=== PATIENT | male | born 1960 | race African-American/Black ===

== ENCOUNTER 2020-10-07 14:59 | Inpatient (IN) | payer OTHER ==
[2020-10-07 18:00] VITALS: BMI 31.2
[2020-10-07] MEDS ORDERED: ACETAMINOPHEN 325 MG TABLET (FP) PO PRN ×2 (19:32)
[2020-10-07] MEDS ORDERED: NICOTINE POLACRILEX 2 MG GUM BUC PRN (19:32)
[2020-10-07] MEDS ORDERED: MAGNESIUM HYDROX 2400MG/30ML ORAL SUSPENSION 30 ML CUP PO PRN (19:32)
[2020-10-07] MEDS ORDERED: MENTHOL/PHENOL 1 EACH UD MM PRN (19:32)
[2020-10-07] MEDS ORDERED: MAG HYDROX/AL HYDROX/SIMETH 30 ML UNIT-DOSE CUP PO PRN (19:32)
[2020-10-07] MEDS ORDERED: BISMUTH SUBSALICYLATE 524 MG/30 ML UD PO PRN (19:32)
[2020-10-07] MEDS ORDERED: MAGNESIUM CITRATE 300 ML BOTTLE PO PRN (19:32)
[2020-10-07] MEDS ORDERED: METHOCARBAMOL 500 MG TABLET PO PRN (19:32)
[2020-10-07] MEDS ORDERED: IBUPROFEN 400 MG TABLET (FP) PO PRN (19:32)
[2020-10-07] MEDS ORDERED: ONDANSETRON *ODT* 4 MG TABLET SL PRN (19:32)
[2020-10-07] MEDS: THIAMINE HCL 100 MG TABLET (FP) PO SCH (22:46)
[2020-10-07] MEDS: MELATONIN 5 MG TABLETS PO SCH (22:46)
[2020-10-07] MEDS: hydrOXYzine PAMOATE 25 MG CAPSULE (FP) PO SCH (22:46)
[2020-10-08] MEDS: hydrOXYzine PAMOATE 25 MG CAPSULE (FP) PO SCH ×5 (05:32→22:38)
[2020-10-08 10:02] LABS: HEMATOCRIT 35.4 % (35.4-49); HEMOGLOBIN 11.7 GM/dL (11.7-16.9); MCH 30.4 pg (25.7-33.7); MEAN CELL VOLUME 91.9 fl (80-96); MEAN PLT VOLUME 7.8 fl (7.5-11.1); PLATELET COUNT 254 K/MM3 (134-434); RBC 3.85 M/mm3 (4.00-5.60); RDW 14.3 % (11.9-15.9); WHITE BLOOD COUNT 5.4 K/mm3 (4.0-10.0)
[2020-10-08] MEDS: diazePAM 5 MG TABLET PO SCH ×2 (10:17→22:37)
[2020-10-08] MEDS: PRENATAL VITAMINS W/ FOLIC ACID TABLET (FP) PO SCH (10:19)
[2020-10-08 10:24] LABS: ALBUMIN 2.9 g/dl (3.4-5.0); BLOOD UREA NITROGEN 16.6 mg/dL (7-18)
[2020-10-08 10:27] LABS: CREATININE 1.2 mg/dL (0.55-1.3)
[2020-10-08 10:29] LABS: BILIRUBIN,TOTAL 0.4 mg/dL (0.2-1); TOT PROT 5.8 g/dl (6.4-8.2)
[2020-10-08 10:52] LABS: CALCIUM 7.8 mg/dL (8.5-10.1)
[2020-10-08] MEDS: METOPROLOL TARTRATE 50 MG TABLET (FP) PO SCH ×2 (15:31→22:38)
[2020-10-08] MEDS: metFORMIN HCL 500 MG TABLET (FP) PO SCH (18:19)
[2020-10-08] MEDS: MELATONIN 5 MG TABLETS PO SCH (22:38)
[2020-10-08] MEDS: THIAMINE HCL 100 MG TABLET (FP) PO SCH (22:38)
[2020-10-09] MEDS ORDERED: diazePAM 5 MG TABLET PO ONE (05:00)
[2020-10-09] MEDS: hydrOXYzine PAMOATE 25 MG CAPSULE (FP) PO SCH ×3 (05:25→14:41)
[2020-10-09] MEDS: metFORMIN HCL 500 MG TABLET (FP) PO SCH (07:17)
[2020-10-09 09:56] VITALS: BP 145/88; PULSE 72; TEMP 97.8
[2020-10-09] MEDS: METOPROLOL TARTRATE 50 MG TABLET (FP) PO SCH (10:23)
[2020-10-09] MEDS: PRENATAL VITAMINS W/ FOLIC ACID TABLET (FP) PO SCH (10:23)
== END 2020-10-09 15:25 | disposition other institution (70) | DRG 774 ==
LOC: YASAS 14:59 → UNDOADMIN 19:25 → Y6N 19:25
PROVIDERS: ADMIT Allergy & Immunology; ATTEND Allergy & Immunology
PROC: HZ2ZZZZ Detoxification Services for Substance Abuse Treatment (ICD-10-PCS; principal; 2020-10-07)
DX: F10.230 Alcohol dependence with withdrawal, uncomplicated (principal); F14.20 Cocaine dependence, uncomplicated; F13.20 Sedative, hypnotic or anxiolytic dependence, uncomplicated; F17.210 Nicotine dependence, cigarettes, uncomplicated; F19.24 Other psychoactive substance dependence with psychoactive substance-induced mood disorder; I10 Essential (primary) hypertension; E11.9 Type 2 diabetes mellitus without complications; Z79.84 Long term (current) use of oral hypoglycemic drugs; R56.1 Post traumatic seizures; Z59.0 Homelessness
CPT/HCPCS: 36415; 71046-TC-FY; 80053; 82962; 83036; 85027; 86780; 93005; 93010; C9803; U0003; U0005

== ENCOUNTER 2020-10-09 15:33 | Inpatient (IN) | payer OTHER ==
[2020-10-09] MEDS ORDERED: MAG HYDROX/AL HYDROX/SIMETH 30 ML UNIT-DOSE CUP PO PRN (15:41)
[2020-10-09] MEDS ORDERED: guaiFENesin 200 MG/10 ML 10 ML UNIT-DOSE CUPS PO PRN (15:41)
[2020-10-09] MEDS ORDERED: ACETAMINOPHEN 325 MG TABLET (FP) PO PRN (15:41)
[2020-10-09] MEDS ORDERED: MAGNESIUM CITRATE 300 ML BOTTLE PO PRN (15:41)
[2020-10-09] MEDS ORDERED: P-EPHED 60MG/TRIPROLIDI 2.5MG TABLET PO PRN (15:41)
[2020-10-09] MEDS ORDERED: LOPERAMIDE HCL 2 MG CAPSULE PO PRN (15:41)
[2020-10-09] MEDS ORDERED: MENTHOL/PHENOL 1 EACH UD MM PRN (15:41)
[2020-10-09] MEDS ORDERED: IBUPROFEN 400 MG TABLET (FP) PO PRN (15:41)
[2020-10-09] MEDS ORDERED: MAGNESIUM HYDROX 2400MG/30ML ORAL SUSPENSION 30 ML CUP PO PRN (15:41)
[2020-10-09] MEDS: metFORMIN HCL 500 MG TABLET (FP) PO SCH (17:37)
[2020-10-09] MEDS: THIAMINE HCL 100 MG TABLET (FP) PO SCH (21:52)
[2020-10-09] MEDS: MELATONIN 5 MG TABLETS PO SCH (21:53)
[2020-10-09] MEDS: METOPROLOL TARTRATE 50 MG TABLET (FP) PO SCH (22:11)
[2020-10-10] MEDS: metFORMIN HCL 500 MG TABLET (FP) PO SCH ×2 (07:50→16:41)
[2020-10-10] MEDS: METOPROLOL TARTRATE 50 MG TABLET (FP) PO SCH ×2 (09:53→21:28)
[2020-10-10] MEDS: NICOTINE 7 MG/24 HOURS TOPICAL PATCH TD SCH (09:53)
[2020-10-10] MEDS: PRENATAL VITAMINS W/ FOLIC ACID TABLET (FP) PO SCH (09:53)
[2020-10-10] MEDS: NICOTINE POLACRILEX 2 MG GUM BUC PRN (09:55)
[2020-10-10] MEDS: MELATONIN 5 MG TABLETS PO SCH (21:27)
[2020-10-10] MEDS: THIAMINE HCL 100 MG TABLET (FP) PO SCH (21:28)
[2020-10-10] MEDS: hydrOXYzine PAMOATE 25 MG CAPSULE (FP) PO PRN (21:28)
[2020-10-10] MEDS: BACITRACIN 0.9 GM PACKET TP SCH (21:29)
[2020-10-11] MEDS: metFORMIN HCL 500 MG TABLET (FP) PO SCH ×2 (06:28→16:55)
[2020-10-11] MEDS: NICOTINE POLACRILEX 2 MG GUM BUC PRN (09:58)
[2020-10-11] MEDS: PRENATAL VITAMINS W/ FOLIC ACID TABLET (FP) PO SCH (09:58)
[2020-10-11] MEDS: METOPROLOL TARTRATE 50 MG TABLET (FP) PO SCH ×2 (09:58→22:08)
[2020-10-11] MEDS: hydrOXYzine PAMOATE 25 MG CAPSULE (FP) PO PRN ×2 (09:58→22:08)
[2020-10-11] MEDS: BACITRACIN 0.9 GM PACKET TP SCH ×2 (09:58→22:08)
[2020-10-11] MEDS: NICOTINE 7 MG/24 HOURS TOPICAL PATCH TD SCH (11:05)
[2020-10-11] MEDS ORDERED: PT OWN MED DRAWER 7, Y5N ONE (19:18)
[2020-10-11] MEDS: THIAMINE HCL 100 MG TABLET (FP) PO SCH (22:08)
[2020-10-11] MEDS: MELATONIN 5 MG TABLETS PO SCH (22:08)
[2020-10-12] MEDS: metFORMIN HCL 500 MG TABLET (FP) PO SCH ×2 (06:57→18:08)
[2020-10-12] MEDS ORDERED: PT OWN MED DRAWER 7, Y5N ONE ×2 (09:03→19:08)
[2020-10-12] MEDS: BACITRACIN 0.9 GM PACKET TP SCH ×2 (09:55→22:14)
[2020-10-12] MEDS: PRENATAL VITAMINS W/ FOLIC ACID TABLET (FP) PO SCH (09:55)
[2020-10-12] MEDS: NICOTINE POLACRILEX 2 MG GUM BUC PRN (09:55)
[2020-10-12] MEDS: METOPROLOL TARTRATE 50 MG TABLET (FP) PO SCH ×2 (09:55→22:14)
[2020-10-12] MEDS: NICOTINE 7 MG/24 HOURS TOPICAL PATCH TD SCH (09:55)
[2020-10-12] MEDS: MELATONIN 5 MG TABLETS PO SCH (22:14)
[2020-10-12] MEDS: THIAMINE HCL 100 MG TABLET (FP) PO SCH (22:14)
[2020-10-13] MEDS: metFORMIN HCL 500 MG TABLET (FP) PO SCH ×2 (06:07→16:46)
[2020-10-13] MEDS ORDERED: PT OWN MED DRAWER 7, Y5N ONE ×2 (08:25→19:10)
[2020-10-13] MEDS: BACITRACIN 0.9 GM PACKET TP SCH ×2 (09:30→21:02)
[2020-10-13] MEDS: PRENATAL VITAMINS W/ FOLIC ACID TABLET (FP) PO SCH (09:30)
[2020-10-13] MEDS: METOPROLOL TARTRATE 50 MG TABLET (FP) PO SCH ×2 (09:30→21:02)
[2020-10-13] MEDS: NICOTINE POLACRILEX 2 MG GUM BUC PRN (09:30)
[2020-10-13] MEDS: NICOTINE 7 MG/24 HOURS TOPICAL PATCH TD SCH (09:30)
[2020-10-13] MEDS: THIAMINE HCL 100 MG TABLET (FP) PO SCH (21:02)
[2020-10-13] MEDS: MELATONIN 5 MG TABLETS PO SCH (21:02)
[2020-10-14 06:05] LABS: SARS-CoV-2 NAA Not Detected (Not Detected)
[2020-10-14] MEDS: metFORMIN HCL 500 MG TABLET (FP) PO SCH ×2 (06:51→16:42)
[2020-10-14] MEDS: METOPROLOL TARTRATE 50 MG TABLET (FP) PO SCH ×2 (09:38→21:29)
[2020-10-14] MEDS: BACITRACIN 0.9 GM PACKET TP SCH ×2 (09:38→21:29)
[2020-10-14] MEDS: PRENATAL VITAMINS W/ FOLIC ACID TABLET (FP) PO SCH (09:38)
[2020-10-14] MEDS: NICOTINE 7 MG/24 HOURS TOPICAL PATCH TD SCH (09:39)
[2020-10-14] MEDS: NICOTINE POLACRILEX 2 MG GUM BUC PRN (09:40)
[2020-10-14] MEDS: MELATONIN 5 MG TABLETS PO SCH (21:29)
[2020-10-14] MEDS: THIAMINE HCL 100 MG TABLET (FP) PO SCH (21:29)
[2020-10-15] MEDS: metFORMIN HCL 500 MG TABLET (FP) PO SCH ×2 (06:40→16:35)
[2020-10-15] MEDS: BACITRACIN 0.9 GM PACKET TP SCH ×2 (10:08→21:40)
[2020-10-15] MEDS: METOPROLOL TARTRATE 50 MG TABLET (FP) PO SCH ×2 (10:08→21:40)
[2020-10-15] MEDS: NICOTINE 7 MG/24 HOURS TOPICAL PATCH TD SCH (10:08)
[2020-10-15] MEDS: PRENATAL VITAMINS W/ FOLIC ACID TABLET (FP) PO SCH (10:08)
[2020-10-15] MEDS: NICOTINE POLACRILEX 2 MG GUM BUC PRN (10:09)
[2020-10-15] MEDS ORDERED: PT OWN MED DRAWER 7, Y5N ONE (19:25)
[2020-10-15] MEDS: MELATONIN 5 MG TABLETS PO SCH (21:40)
[2020-10-15] MEDS: THIAMINE HCL 100 MG TABLET (FP) PO SCH (21:40)
[2020-10-16] MEDS: hydrOXYzine PAMOATE 25 MG CAPSULE (FP) PO PRN ×2 (06:24→21:27)
[2020-10-16] MEDS: metFORMIN HCL 500 MG TABLET (FP) PO SCH ×2 (06:24→16:56)
[2020-10-16] MEDS: PRENATAL VITAMINS W/ FOLIC ACID TABLET (FP) PO SCH (09:50)
[2020-10-16] MEDS: NICOTINE 7 MG/24 HOURS TOPICAL PATCH TD SCH (09:50)
[2020-10-16] MEDS: BACITRACIN 0.9 GM PACKET TP SCH ×2 (09:51→21:28)
[2020-10-16] MEDS: METOPROLOL TARTRATE 50 MG TABLET (FP) PO SCH ×2 (09:51→21:28)
[2020-10-16] MEDS ORDERED: PT OWN MED DRAWER 7, Y5N ONE (19:58)
[2020-10-16] MEDS: THIAMINE HCL 100 MG TABLET (FP) PO SCH (21:27)
[2020-10-16] MEDS: MELATONIN 5 MG TABLETS PO SCH (21:28)
[2020-10-16] MEDS: NICOTINE POLACRILEX 2 MG GUM BUC PRN (21:29)
[2020-10-17] MEDS: metFORMIN HCL 500 MG TABLET (FP) PO SCH ×2 (06:17→16:19)
[2020-10-17] MEDS: BACITRACIN 0.9 GM PACKET TP SCH ×2 (10:11→21:26)
[2020-10-17] MEDS: NICOTINE 7 MG/24 HOURS TOPICAL PATCH TD SCH (10:11)
[2020-10-17] MEDS: METOPROLOL TARTRATE 50 MG TABLET (FP) PO SCH ×2 (10:11→21:26)
[2020-10-17] MEDS: PRENATAL VITAMINS W/ FOLIC ACID TABLET (FP) PO SCH (10:11)
[2020-10-17] MEDS: hydrOXYzine PAMOATE 25 MG CAPSULE (FP) PO PRN (10:11)
[2020-10-17] MEDS: NICOTINE POLACRILEX 2 MG GUM BUC PRN (10:12)
[2020-10-17] MEDS ORDERED: PT OWN MED DRAWER 7, Y5N ONE (19:20)
[2020-10-17] MEDS: MELATONIN 5 MG TABLETS PO SCH (21:26)
[2020-10-17] MEDS: THIAMINE HCL 100 MG TABLET (FP) PO SCH (21:26)
[2020-10-18] MEDS: metFORMIN HCL 500 MG TABLET (FP) PO SCH ×2 (06:06→16:56)
[2020-10-18] MEDS: PRENATAL VITAMINS W/ FOLIC ACID TABLET (FP) PO SCH (09:53)
[2020-10-18] MEDS: NICOTINE 7 MG/24 HOURS TOPICAL PATCH TD SCH (09:53)
[2020-10-18] MEDS: METOPROLOL TARTRATE 50 MG TABLET (FP) PO SCH ×2 (09:53→21:43)
[2020-10-18] MEDS: BACITRACIN 0.9 GM PACKET TP SCH ×2 (09:54→21:43)
[2020-10-18] MEDS: NICOTINE POLACRILEX 2 MG GUM BUC PRN (09:54)
[2020-10-18] MEDS ORDERED: PT OWN MED DRAWER 7, Y5N ONE (20:13)
[2020-10-18] MEDS: THIAMINE HCL 100 MG TABLET (FP) PO SCH (21:43)
[2020-10-18] MEDS: MELATONIN 5 MG TABLETS PO SCH (21:43)
[2020-10-19] MEDS: metFORMIN HCL 500 MG TABLET (FP) PO SCH ×2 (07:07→16:53)
[2020-10-19 07:17] VITALS: TEMP 97.9
[2020-10-19] MEDS: METOPROLOL TARTRATE 50 MG TABLET (FP) PO SCH ×2 (09:31→21:29)
[2020-10-19] MEDS: BACITRACIN 0.9 GM PACKET TP SCH ×2 (09:31→21:30)
[2020-10-19] MEDS: NICOTINE 7 MG/24 HOURS TOPICAL PATCH TD SCH (09:31)
[2020-10-19] MEDS: PRENATAL VITAMINS W/ FOLIC ACID TABLET (FP) PO SCH (09:31)
[2020-10-19] MEDS ORDERED: PT OWN MED DRAWER 7, Y5N ONE (19:18)
[2020-10-19] MEDS: MELATONIN 5 MG TABLETS PO SCH (21:29)
[2020-10-19] MEDS: hydrOXYzine PAMOATE 25 MG CAPSULE (FP) PO PRN (21:29)
[2020-10-19] MEDS: THIAMINE HCL 100 MG TABLET (FP) PO SCH (21:29)
[2020-10-20] MEDS: metFORMIN HCL 500 MG TABLET (FP) PO SCH (07:38)
[2020-10-20 10:08] VITALS: BP 147/95; PULSE 61
[2020-10-20] MEDS: NICOTINE 7 MG/24 HOURS TOPICAL PATCH TD SCH (10:10)
[2020-10-20] MEDS: BACITRACIN 0.9 GM PACKET TP SCH (10:10)
[2020-10-20] MEDS: METOPROLOL TARTRATE 50 MG TABLET (FP) PO SCH (10:10)
[2020-10-20] MEDS: PRENATAL VITAMINS W/ FOLIC ACID TABLET (FP) PO SCH (10:10)
== END 2020-10-20 12:30 | disposition home or self-care (01) | DRG 772 ==
LOC: YASAS 15:33 → Y5N 15:34
PROVIDERS: ADMIT Allergy & Immunology; ATTEND Allergy & Immunology
PROC: HZ42ZZZ Group Counseling for Substance Abuse Treatment, Cognitive-Behavioral (ICD-10-PCS; principal; 2020-10-09)
DX: F10.20 Alcohol dependence, uncomplicated (principal); F14.10 Cocaine abuse, uncomplicated; F17.210 Nicotine dependence, cigarettes, uncomplicated; F19.24 Other psychoactive substance dependence with psychoactive substance-induced mood disorder; I10 Essential (primary) hypertension; E11.9 Type 2 diabetes mellitus without complications; Z79.84 Long term (current) use of oral hypoglycemic drugs; L97.529 Non-pressure chronic ulcer of other part of left foot with unspecified severity
CPT/HCPCS: 82962; C9803; U0003; U0005